=== PATIENT | female | born 1995 | race African-American/Black ===

== ENCOUNTER 2021-01-25 20:17 | Emergency (ER) | payer OTHER ==
[~2021-01-25] VITALS: Ht 167.6 cm; Wt 95.5 kg
[2021-01-25 20:19] VITALS: TEMP 98.2
[2021-01-25] MEDS ORDERED: ADDERALL10 MG PO (21:07)
[2021-01-25] MEDS ORDERED: ZOLOFT 100MG100 MG PO (21:08)
[2021-01-25] MEDS ORDERED: COMBIRESP IH (21:09)
[2021-01-25] MEDS ORDERED: ATARAX 10MG10 MG/TAB PO (21:09)
[2021-01-25] MEDS ORDERED: BACITRACIN TOPIC1 TU TOP (22:29)
[2021-01-25] MEDS ORDERED: AMOXICILLIN 8751 TAB PO (22:29)
[2021-01-25 22:44] VITALS: BP 131/82; PULSE 82
== END 2021-01-25 22:50 | disposition home or self-care (01) ==
LOC: COL.ER 20:17
DX: S81.851A Open bite, right lower leg, initial encounter (principal); F41.0 Panic disorder [episodic paroxysmal anxiety]; F43.10 Post-traumatic stress disorder, unspecified; Z23 Encounter for immunization; Z20.3 Contact with and (suspected) exposure to rabies; W54.0XXA Bitten by dog, initial encounter